=== PATIENT | male | born 1960 | race Caucasian/White ===

== ENCOUNTER 2019-09-26 10:13 | Inpatient (IN) ==
[2019-09-26] MEDS ORDERED: Ipratropium/Albuterol Neb 3 ML IH PRN (11:44)
[2019-09-26] MEDS: *HR* Heparin 5,000 UNIT/ML VIAL SQ SCH ×2 (13:18→22:05)
[2019-09-26] MEDS ORDERED: Insulin LISPRO 300 UNITS/3 ML VIAL SQ SCH (16:30)
[2019-09-26] MEDS: *HR* Metformin 500 MG TABLET PO SCH (17:05)
[2019-09-26] MEDS: Furosemide 40 MG TABLET PO SCH (17:05)
[2019-09-26] MEDS: Insulin LISPRO 300 UNITS/3 ML VIAL SQ SCH (19:42)
[2019-09-26] MEDS: Insulin DETEMIR 100 UNIT/ML X5UNITS SQ SCH (19:42)
[2019-09-26] MEDS: Doxycycline 100 MG CAPSULE PO SCH (19:42)
[2019-09-26] MEDS: lisinopriL 20 MG TABLET PO SCH (19:42)
[2019-09-26] MEDS ORDERED: Doxycycline 100 MG CAPSULE PO SCH (21:00)
[2019-09-26] MEDS: Budesonide/Formoterol 160/4.5 1 PUFF INH IH SCH (22:25)
[2019-09-27] MEDS: *HR* Heparin 5,000 UNIT/ML VIAL SQ SCH ×3 (05:51→21:38)
[2019-09-27 07:28] LABS: Basophils # 0.1 K/mcL (0.0-0.2); Basophils % 0.4 %; Eosinophils # 0.6 K/mcL (0.0-0.6); Eosinophils % 4.2 %; Hematocrit 44.3 % (37.5-50.1); Hemoglobin 13.1 g/dL (12.9-16.9); Immature Granulocytes % 0.4 % (0-4); Lymphocytes # 1.4 K/mcL (0.6-4.6); Lymphocytes % 9.6 %; Mean Corpuscular HGB Conc 29.6 g/dL (31.6-35.5); Mean Corpuscular Hemoglobin 26.4 pg (28.0-33.3); Mean Corpuscular Volume 89.1 fL (83.0-100.0); Mean Platelet Volume 10.3 fL (9.4-12.4); Monocytes # 0.7 K/mcL (0.0-1.3); Monocytes % 5.1 %; Neutrophils # 11.6 K/mcL (1.6-8.9); Platelet Count 307 K/mcL (140-400); Red Blood Count 4.97 M/mcL (4.19-5.50); Red Cell Distribution Width 16.2 % (11.5-14.5); Segmented Neutrophils % 80.3 %; White Blood Count 14.4 K/mcL (4.3-11.1)
[2019-09-27 07:45] LABS: BUN/Creatinine Ratio 25 (6-26); Blood Urea Nitrogen 20 mg/dL (8-23); Calcium 8.7 mg/dL (8.6-10.3); Carbon Dioxide 37 mEq/L (23-29); Chloride 98 mEq/L (98-107); Glucose 125 mg/dL (70-105); Osmolality,Calculated 294 (280-300); Potassium 4.1 mEq/L (3.5-5.1); Sodium 140 mEq/L (136-145); eGFR For African Americans > 60 (> 60); eGFR For Non-African Americans > 60 (> 60)
[2019-09-27] MEDS: Insulin LISPRO 300 UNITS/3 ML VIAL SQ SCH ×4 (07:59→21:37)
[2019-09-27] MEDS: Aspirin Enteric Coated 325 MG Tablet PO SCH (08:22)
[2019-09-27] MEDS: *HR* Metformin 500 MG TABLET PO SCH ×2 (08:23→16:58)
[2019-09-27] MEDS: Doxycycline 100 MG CAPSULE PO SCH ×2 (08:23→21:38)
[2019-09-27] MEDS: lisinopriL 20 MG TABLET PO SCH ×2 (08:23→21:38)
[2019-09-27] MEDS: predniSONE 20 MG TABLET PO SCH (08:23)
[2019-09-27] MEDS: Nicotine 21 MG PATCH.TD24 TD SCH (08:23)
[2019-09-27] MEDS: Furosemide 40 MG TABLET PO SCH ×2 (08:23→16:59)
[2019-09-27] MEDS ORDERED: predniSONE 10 MG TABLET PO SCH (09:00)
[2019-09-27] MEDS: Budesonide/Formoterol 160/4.5 1 PUFF INH IH SCH ×2 (10:41→22:29)
[2019-09-27] MEDS: Nystatin Cream 15 GM TUBE TP SCH ×2 (14:35→21:39)
[2019-09-27] MEDS: Ammonium Lactate 30 APPL/225 GM BOTTLE TP SCH (14:35)
[2019-09-27] MEDS ORDERED: Nystatin Cream 15 GM TUBE TP SCH (21:00)
[2019-09-27] MEDS: Insulin DETEMIR 100 UNIT/ML X5UNITS SQ SCH (21:38)
[2019-09-27] MEDS: Triamcinolone Acet 0.1% CRM 15 GM TUBE TP SCH (21:39)
[2019-09-28] MEDS: *HR* Heparin 5,000 UNIT/ML VIAL SQ SCH ×3 (06:17→20:36)
[2019-09-28] MEDS: lisinopriL 20 MG TABLET PO SCH ×2 (08:31→20:36)
[2019-09-28] MEDS: Furosemide 40 MG TABLET PO SCH ×2 (08:31→17:21)
[2019-09-28] MEDS: Doxycycline 100 MG CAPSULE PO SCH ×2 (08:31→20:36)
[2019-09-28] MEDS: Nicotine 21 MG PATCH.TD24 TD SCH (08:31)
[2019-09-28] MEDS: *HR* Metformin 500 MG TABLET PO SCH ×2 (08:31→17:21)
[2019-09-28] MEDS: Aspirin Enteric Coated 325 MG Tablet PO SCH (08:32)
[2019-09-28] MEDS: predniSONE 20 MG TABLET PO SCH (08:32)
[2019-09-28] MEDS: Insulin LISPRO 300 UNITS/3 ML VIAL SQ SCH ×4 (08:33→20:37)
[2019-09-28] MEDS: Ammonium Lactate 30 APPL/225 GM BOTTLE TP SCH (08:38)
[2019-09-28] MEDS: Triamcinolone Acet 0.1% CRM 15 GM TUBE TP SCH ×2 (08:38→20:38)
[2019-09-28] MEDS: Nystatin Cream 15 GM TUBE TP SCH ×2 (08:42→20:38)
[2019-09-28] MEDS: Budesonide/Formoterol 160/4.5 1 PUFF INH IH SCH ×2 (09:23→22:00)
[2019-09-28] MEDS: Insulin DETEMIR 100 UNIT/ML X5UNITS SQ SCH (20:37)
[2019-09-29] MEDS: *HR* Heparin 5,000 UNIT/ML VIAL SQ SCH ×3 (05:44→20:14)
[2019-09-29] MEDS: Insulin LISPRO 300 UNITS/3 ML VIAL SQ SCH ×4 (07:29→20:17)
[2019-09-29] MEDS: lisinopriL 20 MG TABLET PO SCH ×2 (08:36→20:14)
[2019-09-29] MEDS: Doxycycline 100 MG CAPSULE PO SCH ×2 (08:37→20:14)
[2019-09-29] MEDS: Nicotine 21 MG PATCH.TD24 TD SCH (08:37)
[2019-09-29] MEDS: Furosemide 40 MG TABLET PO SCH ×2 (08:37→16:44)
[2019-09-29] MEDS: predniSONE 20 MG TABLET PO SCH (08:37)
[2019-09-29] MEDS: *HR* Metformin 500 MG TABLET PO SCH ×2 (08:37→16:44)
[2019-09-29] MEDS: Aspirin Enteric Coated 325 MG Tablet PO SCH (08:42)
[2019-09-29] MEDS: Triamcinolone Acet 0.1% CRM 15 GM TUBE TP SCH ×2 (08:45→20:18)
[2019-09-29] MEDS: Nystatin Cream 15 GM TUBE TP SCH ×2 (08:46→20:17)
[2019-09-29] MEDS: Budesonide/Formoterol 160/4.5 1 PUFF INH IH SCH ×2 (09:17→21:40)
[2019-09-29] MEDS: Ammonium Lactate 30 APPL/225 GM BOTTLE TP SCH (19:30)
[2019-09-29] MEDS: Insulin DETEMIR 100 UNIT/ML X5UNITS SQ SCH (20:14)
[2019-09-30] MEDS: *HR* Heparin 5,000 UNIT/ML VIAL SQ SCH ×3 (05:18→20:32)
[2019-09-30] MEDS: Insulin LISPRO 300 UNITS/3 ML VIAL SQ SCH ×4 (07:22→20:32)
[2019-09-30] MEDS: Furosemide 40 MG TABLET PO SCH ×2 (09:20→16:32)
[2019-09-30] MEDS: *HR* Metformin 500 MG TABLET PO SCH ×2 (09:20→16:32)
[2019-09-30] MEDS: predniSONE 20 MG TABLET PO SCH (09:20)
[2019-09-30] MEDS: Doxycycline 100 MG CAPSULE PO SCH (09:20)
[2019-09-30] MEDS: Nicotine 21 MG PATCH.TD24 TD SCH (09:20)
[2019-09-30] MEDS: lisinopriL 20 MG TABLET PO SCH ×2 (09:20→20:31)
[2019-09-30] MEDS: Ammonium Lactate 30 APPL/225 GM BOTTLE TP SCH (09:22)
[2019-09-30] MEDS: Aspirin Enteric Coated 325 MG Tablet PO SCH (09:24)
[2019-09-30] MEDS: Budesonide/Formoterol 160/4.5 1 PUFF INH IH SCH ×2 (11:07→20:52)
[2019-09-30] MEDS: Triamcinolone Acet 0.1% CRM 15 GM TUBE TP SCH ×2 (11:56→20:32)
[2019-09-30] MEDS: Nystatin Cream 15 GM TUBE TP SCH ×2 (11:56→20:32)
[2019-09-30] MEDS: Insulin DETEMIR 100 UNIT/ML X5UNITS SQ SCH (20:32)
[2019-10-01] MEDS: *HR* Heparin 5,000 UNIT/ML VIAL SQ SCH ×3 (05:35→22:12)
[2019-10-01] MEDS: *HR* Metformin 500 MG TABLET PO SCH ×2 (09:13→16:08)
[2019-10-01] MEDS: predniSONE 20 MG TABLET PO SCH (09:14)
[2019-10-01] MEDS: lisinopriL 20 MG TABLET PO SCH ×2 (09:14→19:54)
[2019-10-01] MEDS: Nicotine 21 MG PATCH.TD24 TD SCH (09:14)
[2019-10-01] MEDS: Furosemide 40 MG TABLET PO SCH ×2 (09:14→16:08)
[2019-10-01] MEDS: Aspirin Enteric Coated 325 MG Tablet PO SCH (09:17)
[2019-10-01] MEDS: Triamcinolone Acet 0.1% CRM 15 GM TUBE TP SCH ×2 (09:17→19:55)
[2019-10-01] MEDS: Insulin LISPRO 300 UNITS/3 ML VIAL SQ SCH ×4 (09:17→19:54)
[2019-10-01] MEDS: Nystatin Cream 15 GM TUBE TP SCH ×2 (09:17→19:54)
[2019-10-01] MEDS: Ammonium Lactate 30 APPL/225 GM BOTTLE TP SCH (09:17)
[2019-10-01] MEDS: Budesonide/Formoterol 160/4.5 1 PUFF INH IH SCH ×2 (10:32→20:49)
[2019-10-01] MEDS: Insulin DETEMIR 100 UNIT/ML X5UNITS SQ SCH (19:54)
[2019-10-02] MEDS: *HR* Heparin 5,000 UNIT/ML VIAL SQ SCH ×3 (06:30→21:26)
[2019-10-02] MEDS: Furosemide 40 MG TABLET PO SCH ×2 (08:28→16:53)
[2019-10-02] MEDS: predniSONE 20 MG TABLET PO SCH (08:28)
[2019-10-02] MEDS: lisinopriL 20 MG TABLET PO SCH ×2 (08:29→21:26)
[2019-10-02] MEDS: *HR* Metformin 500 MG TABLET PO SCH ×2 (08:29→16:53)
[2019-10-02] MEDS: Nicotine 21 MG PATCH.TD24 TD SCH (08:29)
[2019-10-02] MEDS: Insulin LISPRO 300 UNITS/3 ML VIAL SQ SCH ×4 (08:30→21:27)
[2019-10-02] MEDS: Aspirin Enteric Coated 325 MG Tablet PO SCH (08:33)
[2019-10-02] MEDS: Triamcinolone Acet 0.1% CRM 15 GM TUBE TP SCH ×2 (08:33→21:30)
[2019-10-02] MEDS: Budesonide/Formoterol 160/4.5 1 PUFF INH IH SCH ×2 (08:53→22:00)
[2019-10-02] MEDS: Nystatin Cream 15 GM TUBE TP SCH ×2 (12:45→21:30)
[2019-10-02] MEDS: Ammonium Lactate 30 APPL/225 GM BOTTLE TP SCH (12:45)
[2019-10-02] MEDS: Insulin DETEMIR 100 UNIT/ML X5UNITS SQ SCH (21:29)
[2019-10-03] MEDS: *HR* Heparin 5,000 UNIT/ML VIAL SQ SCH ×3 (06:39→21:15)
[2019-10-03] MEDS: Nicotine 21 MG PATCH.TD24 TD SCH (08:02)
[2019-10-03] MEDS: predniSONE 20 MG TABLET PO SCH (08:04)
[2019-10-03] MEDS: *HR* Metformin 500 MG TABLET PO SCH ×2 (08:05→16:29)
[2019-10-03] MEDS: lisinopriL 20 MG TABLET PO SCH ×2 (08:05→21:15)
[2019-10-03] MEDS: Furosemide 40 MG TABLET PO SCH ×2 (08:05→16:29)
[2019-10-03] MEDS: Aspirin Enteric Coated 325 MG Tablet PO SCH (08:06)
[2019-10-03] MEDS: Insulin LISPRO 300 UNITS/3 ML VIAL SQ SCH ×4 (08:06→21:16)
[2019-10-03] MEDS: Budesonide/Formoterol 160/4.5 1 PUFF INH IH SCH ×2 (08:17→21:39)
[2019-10-03] MEDS: Ammonium Lactate 30 APPL/225 GM BOTTLE TP SCH (08:47)
[2019-10-03] MEDS: Nystatin Cream 15 GM TUBE TP SCH ×2 (08:49→21:17)
[2019-10-03] MEDS: Triamcinolone Acet 0.1% CRM 15 GM TUBE TP SCH ×2 (08:56→21:16)
[2019-10-03] MEDS: Insulin DETEMIR 100 UNIT/ML X5UNITS SQ SCH (21:15)
[2019-10-04] MEDS: *HR* Heparin 5,000 UNIT/ML VIAL SQ SCH ×3 (06:36→20:57)
[2019-10-04] MEDS: predniSONE 20 MG TABLET PO SCH (07:58)
[2019-10-04] MEDS: Furosemide 40 MG TABLET PO SCH ×2 (07:58→16:15)
[2019-10-04] MEDS: lisinopriL 20 MG TABLET PO SCH ×2 (07:58→20:55)
[2019-10-04] MEDS: *HR* Metformin 500 MG TABLET PO SCH ×2 (07:58→16:15)
[2019-10-04] MEDS: Aspirin Enteric Coated 325 MG Tablet PO SCH (07:59)
[2019-10-04] MEDS: Nicotine 21 MG PATCH.TD24 TD SCH (08:00)
[2019-10-04] MEDS: Nystatin Cream 15 GM TUBE TP SCH ×2 (08:00→20:58)
[2019-10-04 08:01] LABS: Basophils % 0.3 %; Eosinophils # 0.2 K/mcL (0.0-0.6); Hematocrit 42.7 % (37.5-50.1); Immature Granulocytes % 0.3 % (0-4); Lymphocytes # 2.4 K/mcL (0.6-4.6); Lymphocytes % 19.9 %; Mean Corpuscular HGB Conc 30.4 g/dL (31.6-35.5); Mean Corpuscular Hemoglobin 25.9 pg (28.0-33.3); Mean Corpuscular Volume 85.2 fL (83.0-100.0); Mean Platelet Volume 10.7 fL (9.4-12.4); Monocytes # 0.8 K/mcL (0.0-1.3); Monocytes % 6.6 %; Neutrophils # 8.5 K/mcL (1.6-8.9); Platelet Count 264 K/mcL (140-400); Red Blood Count 5.01 M/mcL (4.19-5.50); Segmented Neutrophils % 70.9 %
[2019-10-04] MEDS: Insulin LISPRO 300 UNITS/3 ML VIAL SQ SCH ×4 (08:01→20:55)
[2019-10-04] MEDS: Ammonium Lactate 30 APPL/225 GM BOTTLE TP SCH (08:10)
[2019-10-04 08:20] LABS: BUN/Creatinine Ratio 31 (6-26); Blood Urea Nitrogen 22 mg/dL (8-23); Calcium 8.8 mg/dL (8.6-10.3); Carbon Dioxide 37 mEq/L (23-29); Chloride 98 mEq/L (98-107); Glucose 150 mg/dL (70-105); Osmolality,Calculated 298 (280-300); Potassium 3.6 mEq/L (3.5-5.1); Sodium 141 mEq/L (136-145); eGFR For African Americans > 60 (> 60); eGFR For Non-African Americans > 60 (> 60)
[2019-10-04] MEDS: Triamcinolone Acet 0.1% CRM 15 GM TUBE TP SCH ×2 (08:24→20:56)
[2019-10-04] MEDS: Budesonide/Formoterol 160/4.5 1 PUFF INH IH SCH ×2 (10:08→20:50)
[2019-10-04] MEDS: Insulin DETEMIR 100 UNIT/ML X5UNITS SQ SCH (20:55)
[2019-10-05] MEDS: *HR* Heparin 5,000 UNIT/ML VIAL SQ SCH ×3 (06:18→21:38)
[2019-10-05] MEDS: Nicotine 21 MG PATCH.TD24 TD SCH (08:38)
[2019-10-05] MEDS: Insulin LISPRO 300 UNITS/3 ML VIAL SQ SCH ×4 (08:39→20:08)
[2019-10-05] MEDS: lisinopriL 20 MG TABLET PO SCH ×2 (08:40→20:08)
[2019-10-05] MEDS: predniSONE 20 MG TABLET PO SCH (08:40)
[2019-10-05] MEDS: *HR* Metformin 500 MG TABLET PO SCH ×2 (08:40→16:57)
[2019-10-05] MEDS: Aspirin Enteric Coated 325 MG Tablet PO SCH (08:41)
[2019-10-05] MEDS: Furosemide 40 MG TABLET PO SCH ×2 (08:41→16:57)
[2019-10-05] MEDS: Triamcinolone Acet 0.1% CRM 15 GM TUBE TP SCH ×2 (08:51→20:09)
[2019-10-05] MEDS: Nystatin Cream 15 GM TUBE TP SCH ×2 (08:51→20:09)
[2019-10-05] MEDS: Ammonium Lactate 30 APPL/225 GM BOTTLE TP SCH (08:52)
[2019-10-05] MEDS: Budesonide/Formoterol 160/4.5 1 PUFF INH IH SCH ×2 (10:12→20:44)
[2019-10-05] MEDS: Insulin DETEMIR 100 UNIT/ML X5UNITS SQ SCH (20:09)
[2019-10-06] MEDS: *HR* Heparin 5,000 UNIT/ML VIAL SQ SCH ×3 (06:47→22:09)
[2019-10-06] MEDS: Insulin LISPRO 300 UNITS/3 ML VIAL SQ SCH ×4 (10:08→22:09)
[2019-10-06] MEDS: Aspirin Enteric Coated 325 MG Tablet PO SCH (10:09)
[2019-10-06] MEDS: *HR* Metformin 500 MG TABLET PO SCH ×2 (10:09→16:36)
[2019-10-06] MEDS: Nicotine 21 MG PATCH.TD24 TD SCH (10:09)
[2019-10-06] MEDS: predniSONE 20 MG TABLET PO SCH (10:10)
[2019-10-06] MEDS: Furosemide 40 MG TABLET PO SCH ×2 (10:10→16:36)
[2019-10-06] MEDS: lisinopriL 20 MG TABLET PO SCH ×2 (10:10→22:07)
[2019-10-06] MEDS: Ammonium Lactate 30 APPL/225 GM BOTTLE TP SCH (10:15)
[2019-10-06] MEDS: Triamcinolone Acet 0.1% CRM 15 GM TUBE TP SCH ×2 (10:16→23:49)
[2019-10-06] MEDS: Nystatin Cream 15 GM TUBE TP SCH ×2 (10:16→22:08)
[2019-10-06] MEDS: Budesonide/Formoterol 160/4.5 1 PUFF INH IH SCH ×2 (11:21→20:42)
[2019-10-06] MEDS: Insulin DETEMIR 100 UNIT/ML X5UNITS SQ SCH (22:07)
[2019-10-07] MEDS: *HR* Heparin 5,000 UNIT/ML VIAL SQ SCH ×3 (06:09→21:10)
[2019-10-07] MEDS: Insulin LISPRO 300 UNITS/3 ML VIAL SQ SCH ×4 (07:52→21:08)
[2019-10-07] MEDS: Furosemide 40 MG TABLET PO SCH ×2 (07:53→17:09)
[2019-10-07] MEDS: lisinopriL 20 MG TABLET PO SCH ×2 (07:53→21:08)
[2019-10-07] MEDS: *HR* Metformin 500 MG TABLET PO SCH ×2 (07:53→17:09)
[2019-10-07] MEDS: Nicotine 21 MG PATCH.TD24 TD SCH (07:54)
[2019-10-07] MEDS: predniSONE 20 MG TABLET PO SCH (07:54)
[2019-10-07] MEDS: Aspirin Enteric Coated 325 MG Tablet PO SCH (07:54)
[2019-10-07] MEDS: Triamcinolone Acet 0.1% CRM 15 GM TUBE TP SCH ×2 (07:58→21:09)
[2019-10-07] MEDS: Nystatin Cream 15 GM TUBE TP SCH ×2 (08:07→21:09)
[2019-10-07] MEDS: Ammonium Lactate 30 APPL/225 GM BOTTLE TP SCH (08:08)
[2019-10-07] MEDS: Budesonide/Formoterol 160/4.5 1 PUFF INH IH SCH ×2 (08:46→22:38)
[2019-10-07] MEDS: Insulin DETEMIR 100 UNIT/ML X5UNITS SQ SCH (21:08)
[2019-10-08] MEDS: *HR* Heparin 5,000 UNIT/ML VIAL SQ SCH ×3 (06:19→20:26)
[2019-10-08] MEDS: *HR* Metformin 500 MG TABLET PO SCH ×2 (08:19→17:11)
[2019-10-08] MEDS: lisinopriL 20 MG TABLET PO SCH ×2 (08:19→20:24)
[2019-10-08] MEDS: Nicotine 21 MG PATCH.TD24 TD SCH (08:20)
[2019-10-08] MEDS: predniSONE 20 MG TABLET PO SCH (08:20)
[2019-10-08] MEDS: Furosemide 40 MG TABLET PO SCH ×2 (08:20→17:11)
[2019-10-08] MEDS: Insulin LISPRO 300 UNITS/3 ML VIAL SQ SCH ×4 (08:23→20:25)
[2019-10-08] MEDS: Ammonium Lactate 30 APPL/225 GM BOTTLE TP SCH (08:23)
[2019-10-08] MEDS: Aspirin Enteric Coated 325 MG Tablet PO SCH (08:24)
[2019-10-08] MEDS: Budesonide/Formoterol 160/4.5 1 PUFF INH IH SCH ×2 (09:15→22:03)
[2019-10-08] MEDS: Nystatin Cream 15 GM TUBE TP SCH ×2 (12:25→20:26)
[2019-10-08] MEDS: Triamcinolone Acet 0.1% CRM 15 GM TUBE TP SCH ×2 (12:25→20:27)
[2019-10-08] MEDS: Insulin DETEMIR 100 UNIT/ML X5UNITS SQ SCH (20:27)
[2019-10-09] MEDS: *HR* Heparin 5,000 UNIT/ML VIAL SQ SCH (05:34)
[2019-10-09 07:02] VITALS: BP 120/68
[2019-10-09] MEDS: *HR* Metformin 500 MG TABLET PO SCH (08:08)
[2019-10-09] MEDS: Aspirin Enteric Coated 325 MG Tablet PO SCH (08:09)
[2019-10-09] MEDS: Nicotine 21 MG PATCH.TD24 TD SCH (08:09)
[2019-10-09] MEDS: Furosemide 40 MG TABLET PO SCH (08:09)
[2019-10-09] MEDS: Ammonium Lactate 30 APPL/225 GM BOTTLE TP SCH (08:09)
[2019-10-09] MEDS: lisinopriL 20 MG TABLET PO SCH (08:09)
[2019-10-09] MEDS: Triamcinolone Acet 0.1% CRM 15 GM TUBE TP SCH (08:10)
[2019-10-09] MEDS: Insulin LISPRO 300 UNITS/3 ML VIAL SQ SCH (08:11)
[2019-10-09] MEDS: Nystatin Cream 15 GM TUBE TP SCH (08:11)
[2019-10-09] MEDS ORDERED: predniSONE 10 MG TABLET PO SCH (09:00)
== END 2019-10-09 10:14 | disposition home health service (06) | DRG 189 ==
LOC: INPPIK 10:20
PROVIDERS: ADMIT Family Medicine; ATTEND Family Medicine